=== PATIENT | female | born 1975 | race Caucasian/White ===

== ENCOUNTER 2016-07-02 13:50 | Emergency (ER) | payer SELFPAY ==
[~2016-07-02] VITALS: Ht 162.6 cm; Wt 90.7 kg
[2016-07-02] MEDS ORDERED: CARB200T PO (13:59)
[2016-07-02] MEDS ORDERED: LORAZEPAM INJ 2 MG/ML VIAL IVP ONE (14:30)
[2016-07-02] MEDS ORDERED: IV NS 0.9% 1,000 ML BAG IV ONE (14:30)
[2016-07-02] MEDS ORDERED: IV NS 0.9% 1,000 ML ONE (14:37)
[2016-07-02] MEDS ORDERED: IV SET PRIMARY PUMP SET 1 EA INFUS.SET MC ONE (14:37)
[2016-07-02] MEDS ORDERED: LORAZEPAM INJ 2 MG/ML VIAL ONE (14:38)
[2016-07-02 14:40] LABS: BASOPHILS # (AUTO) 0.1 /CMM (0.0-0.2); BASOPHILS % (AUTO) 1.5 % (0.0-2.0); DIFF TOTAL % 100 %; EOSINOPHILS # (AUTO) 0.2 /CMM (0.0-0.7); EOSINOPHILS % (AUTO) 2.3 % (0.0-6.0); HEMATOCRIT 35 % (33-45); HEMOGLOBIN 11.2 g/dL (11.5-14.8); LYMPHOCYTES % (AUTO) 15.2 % (20.0-44.0); MEAN CORPUSCULAR HEMOGLOBIN 27 PG (26.0-33.0); MEAN CORPUSCULAR HGB CONC 32 g/dl (31.0-36.0); MEAN CORPUSCULAR VOLUME 85 fL (82-100); MONOCYTES # (AUTO) 0.3 /CMM (0.1-1.30); MONOCYTES % (AUTO) 4.5 % (2.0-12.0); NEUTROPHILS % (AUTO) 76.5 % (43.0-81.0); PLATELET COUNT (AUTO) 273 /CMM (150-450); RED BLOOD CELL COUNT(AUTO) 4.08 MIL/uL (4.0-5.2); WHITE BLOOD COUNT (AUTO) 6.6 K/uL (4.3-11.0)
[2016-07-02 14:58] LABS: ALBUMIN 3.7 g/dL (3.4-5.0); BILIRUBIN,DIRECT 0.1 mg/dL (0.0-0.2); BILIRUBIN,TOTAL 0.3 mg/dL (0.2-1.0); CALCIUM, SERUM 8.6 mg/dL (8.5-10.1); CREATININE 0.7 mg/dL (0.6-1.3); POTASSIUM 4.1 mmol/L (3.5-5.1); TOTAL PROTEIN, SERUM 8.1 g/dL (6.4-8.2)
[2016-07-02 15:19] LABS: INDIRECT BILIRUBIN 0.2 mg/dL (0.0-1.1)
[2016-07-02 16:04] VITALS: BP 118/74
== END 2016-07-02 16:06 | disposition home or self-care (01) ==
LOC: EDBD → ER 13:52
DX: R56.9 Unspecified convulsions (principal); Z90.49 Acquired absence of other specified parts of digestive tract
CPT/HCPCS: 36415; 80048; 80076; 80156; 85025; 96361; 96374; 99284; A4606; J2060; J7030; Z7610

== ENCOUNTER 2016-07-02 22:26 | Emergency (ER) | payer MEDICAID ==
[~2016-07-02] VITALS: Ht 162.6 cm; Wt 85.7 kg
[~2016-07-02 22:26] MED LIST: CARB200T PO
[2016-07-02] MEDS ORDERED: ONDANSETRON HCL/PF 4 MG/2 ML VIAL ONE (22:43)
[2016-07-02] MEDS ORDERED: phenytoin SODIUM IV 250 MG/5 ML VIAL IV ONE ×2 (22:43)
[2016-07-02] MEDS ORDERED: IV SET PRIMARY PUMP SET 1 EA INFUS.SET MC ONE (22:44)
[2016-07-02] MEDS ORDERED: IV NS 0.9% 50 ML IV ONE (22:44)
[2016-07-02] MEDS ORDERED: IV FILTER 5 MICRON 1 EA INFUS.SET MC ONE (22:48)
[2016-07-02] MEDS ORDERED: ACETAMINOPHEN ES 500 MG TABLET ONE (22:50)
[2016-07-02] MEDS ORDERED: ONDANSETRON HCL/PF 4 MG/2 ML VIAL IV ONE (23:00)
[2016-07-02] MEDS ORDERED: ACETAMINOPHEN 325 MG TABLET PO ONE (23:00)
[2016-07-02] MEDS ORDERED: phenytoin SODIUM IV 1,000 MG in IV NS 0.9% 100 ML IV ONE (23:00)
[2016-07-03 00:20] VITALS: BP 139/86
== END 2016-07-03 00:21 | disposition home or self-care (01) ==
LOC: ER 22:29
DX: R56.9 Unspecified convulsions (principal); Z90.49 Acquired absence of other specified parts of digestive tract
CPT/HCPCS: 96365; 96375; 99284; A4216; A4606; J1165 ×2; J2405; Z7610